=== PATIENT | female | born 2000 | race African-American/Black ===

== ENCOUNTER 2022-02-01 01:00 | Inpatient (IN) ==
[2022-02-01] MEDS ORDERED: ONDANSETRON 4 MG/2 ML VIAL IV PRN (01:07)
[2022-02-01] MEDS ORDERED: CARBOPROST TROMETHAMINE 250 MCG/ML AMP IM PRN (01:07)
[2022-02-01] MEDS ORDERED: LACTATED RINGERS 500 ML IV PRN (01:07)
[2022-02-01] MEDS ORDERED: TRANEXAMIC ACID 1,000 MG in SODIUM CHLORIDE 0.9% 100 ML IV PRN (01:07)
[2022-02-01] MEDS ORDERED: ACETAMINOPHEN 325 MG TABLET PO PRN (01:07)
[2022-02-01] MEDS ORDERED: OXYTOCIN/LR 20 UNIT/1,000 ML BAG IV ONE ×2 (01:07→15:28)
[2022-02-01] MEDS ORDERED: miSOPROStoL 200 MCG TABLET RECTAL PRN (01:07)
[2022-02-01] MEDS ORDERED: METHYLERGONOVINE 0.2 MG/1 ML AMP IM PRN (01:07)
[2022-02-01] MEDS ORDERED: BUTORPHANOL 2 MG/ML VIAL IV PRN (01:07)
[2022-02-01] MEDS ORDERED: OXYTOCIN/LR 20 UNIT/1,000 ML BAG IV SCH (01:30)
[2022-02-01 01:42] LABS: Basophils % 0.2 % (0.0-0.8); Eosinophils # 0.1 10*3/uL (0.0-0.87); Eosinophils % 0.8 % (0.00-10.9); Hemoglobin 12.9 GM/DL (12.0-16.0); Immature Granulocytes % 1.4 %; Immature Granulocytes Absolute 0.13 #; Lymphocytes # 2.1 10*3/uL (1.4-4.0); Lymphocytes % 21.8 % (21.3-54.2); Mean Corpuscular HGB Conc 32.3 GM/DL (32-36); Mean Corpuscular Volume 93.9 FL (87-102); Mean Platelet Volume 11.2 FL (9.6-12.0); Monocytes % 10.2 % (1.7-12.7); Neutrophils % 65.6 % (38.7-73.9); Platelet Count 262 T/CUMM (130-400); Red Blood Count 4.26 MC/CUMM (3.8-5.5); Red Cell Distribution Width 13.4 % (9.3-17.3); White Blood Count 9.5 T/CUMM (4-12)
[2022-02-01] MEDS ORDERED: NIFEdipine 10 MG CAPSULE PO ONE (01:52)
[2022-02-01 01:57] LABS: Bacteria,Urine Occasional /HPF (Few); Mucus,Urine Occasional /LPF (Occasional); RBC,Urine 2 /HPF (0-4); Squamous Epithelial Cell,Urine Occasional /HPF (0-10); Transitional Epi Cells,Urine Occasional /HPF (<1)
[2022-02-01 01:58] LABS: Bilirubin,Urine Negative (Negative); Blood, Urine Negative (Negative); Glucose,Urine (UA) Negative (Negative); Ketones,Urine Negative (Negative); Nitrite,Urine Negative (Negative); Protein,Urine Negative (Negative); Urine Appearance Clear (Clear); Urine Color Yellow (Yellow); Urine Specific Gravity 1.015 (1.001-1.035); Urine Urobilinogen 0.2 eU/dL (<2.0)
[2022-02-01 02:01] LABS: PT Patient Result 10.9 SECS (10.1-12.1); Partial Thromboplastin Time 33.7 SECS (23.7-32.9)
[2022-02-01] MEDS ORDERED: MEPERIDINE 25 MG/1 ML VIAL IV PRN (02:02)
[2022-02-01 02:04] LABS: Alanine Aminotransferase 16 U/L (13-56); Albumin 2.9 G/DL (3.4-5.0); Alkaline Phosphatase 211 U/L (45-117); Aspartate Amino Transferase 20 U/L (0-37); Blood Urea Nitrogen < 1 MG/DL (7-18); Calcium 8.7 MG/DL (8.5-10.1); Carbon Dioxide 23 MMOL/L (21-32); Chloride 106 MMOL/L (98-107); Glucose 87 MG/DL (74-106); Potassium 2.8 MMOL/L (3.5-5.1); Sodium 138 MMOL/L (136-145); Total Protein 7.5 G/DL (6.4-8.2)
[2022-02-01] MEDS: LACTATED RINGERS 1,000 ML IV SCH ×2 (02:16→09:47)
[2022-02-01] MEDS ORDERED: AMPICILLIN INJ 2,000 MG in SODIUM CHLORIDE 0.9% 100 ML IV ONE (02:30)
[2022-02-01 03:06] LABS: Protein/Creatinine Ratio,Urine 0.3 RATIO
[2022-02-01] MEDS: AMPICILLIN INJ 1,000 MG in SODIUM CHLORIDE 0.9% 100 ML IV SCH ×2 (06:25→09:48)
[2022-02-01] MEDS: POTASSIUM CHLORIDE 20 MEQ TABLET PO PRN ×5 (07:04→22:16)
[2022-02-01] MEDS ORDERED: CITRIC ACID/SODIUM CITRATE 30 ML UDCUP PO ONE (08:13)
[2022-02-01] MEDS ORDERED: FAMOTIDINE 20 MG/2 ML VIAL IV ONE (08:13)
[2022-02-01] MEDS ORDERED: NALOXONE 0.4 MG/ML VIAL IV PRN (08:13)
[2022-02-01] MEDS ORDERED: ePHEDrine 50 MG/ML VIAL IV PRN (08:13)
[2022-02-01] MEDS ORDERED: fentaNYL 2 MCG/ROPIV 0.2% EPID 100 ML EPIDURAL SCH (08:30)
[2022-02-01 10:42] LABS: Amorphous Crystals,Urine Occasional /HPF (Few); Bacteria,Urine Occasional /HPF (Few); Bilirubin,Urine Negative (Negative); Blood, Urine Negative (Negative); Glucose,Urine (UA) Negative (Negative); Ketones,Urine 15 mg/dL (Negative); Nitrite,Urine Negative (Negative); Protein,Urine Negative (Negative); RBC,Urine <1 /HPF (0-4); Squamous Epithelial Cell,Urine Occasional /HPF (0-10); Urine Appearance Clear (Clear); Urine Color Yellow (Yellow)
[2022-02-01 13:11] LABS: Cord Venous Blood HCO3 21.5 MMOL/L; Cord Venous Blood PCO2 49.9 MMHG; Cord Venous Blood PO2 39.2
[2022-02-01] MEDS ORDERED: BENZOCAINE 20%/MENTHOL 0.5% SPRAY 56 GM CAN TOP PRN (15:28)
[2022-02-01] MEDS ORDERED: MEASLES/MUMPS/RUBELLA VACCINE 0.5 ML VIAL SUBCUT ONE (15:28)
[2022-02-01] MEDS ORDERED: BISACODYL 10 MG SUPP RECTAL PRN (15:28)
[2022-02-01] MEDS ORDERED: HYDROCORTISONE 2.5% RECTAL CREAM 30 GM TUBE TOP PRN (15:28)
[2022-02-01] MEDS ORDERED: RHO(D) IMMUNE GLOBULIN 300 MCG SYRINGE IM ONE (15:28)
[2022-02-01] MEDS ORDERED: WITCH HAZEL PADS 100/JAR TOP PRN (15:28)
[2022-02-01] MEDS ORDERED: LANOLIN 50% CREAM 0.3 OZ TUBE TOP PRN (15:28)
[2022-02-01] MEDS ORDERED: DIPH/TET/ACEL PERT BOOSTER VACCINE 0.5 ML VIAL IM ONE (15:28)
[2022-02-01] MEDS ORDERED: oxyCODONE/ACETAMINOPHEN 5-325 MG TABLET PO PRN (15:28)
[2022-02-01] MEDS: oxyCODONE/ACETAMINOPHEN 5-325 MG TABLET PO PRN (15:36)
[2022-02-01] MEDS: IBUPROFEN 800 MG TABLET PO PRN (15:38)
[2022-02-01] MEDS: DOCUSATE SODIUM 100 MG CAPSULE PO SCH (21:06)
[2022-02-02] MEDS: POTASSIUM CHLORIDE 20 MEQ TABLET PO PRN ×3 (00:05→13:22)
[2022-02-02] MEDS: IBUPROFEN 800 MG TABLET PO PRN ×2 (00:05→14:29)
[2022-02-02 04:57] LABS: Basophils # 0.1 10*3/uL (0.0-0.2); Basophils % 0.4 % (0.0-0.8); Eosinophils # 0.2 10*3/uL (0.0-0.87); Eosinophils % 1.2 % (0.00-10.9); Hematocrit 35.7 VOL% (35.7-47.0); Hemoglobin 11.3 GM/DL (12.0-16.0); Immature Granulocytes % 1.2 %; Immature Granulocytes Absolute 0.17 #; Lymphocytes % 14.8 % (21.3-54.2); Mean Corpuscular HGB Conc 31.7 GM/DL (32-36); Mean Corpuscular Volume 96.7 FL (87-102); Mean Platelet Volume 11.7 FL (9.6-12.0); Monocytes # 1.4 10*3/uL (0.11-0.8); Monocytes % 10.1 % (1.7-12.7); Neutrophils % 72.3 % (38.7-73.9); Platelet Count 238 T/CUMM (130-400); Red Blood Count 3.69 MC/CUMM (3.8-5.5); Red Cell Distribution Width 13.4 % (9.3-17.3); White Blood Count 13.7 T/CUMM (4-12)
[2022-02-02] MEDS: DOCUSATE SODIUM 100 MG CAPSULE PO SCH ×2 (09:04→20:45)
[2022-02-02] MEDS: POTASSIUM BICARB EFFERVESCENT 20 MEQ TAB.EFF PO PRN ×2 (17:26→18:38)
[2022-02-03] MEDS: oxyCODONE/ACETAMINOPHEN 5-325 MG TABLET PO PRN (01:36)
[2022-02-03] MEDS: DOCUSATE SODIUM 100 MG CAPSULE PO SCH ×2 (08:29→21:45)
[2022-02-04 07:20] VITALS: BP 145/79
[2022-02-04] MEDS: DOCUSATE SODIUM 100 MG CAPSULE PO SCH (08:19)
== END 2022-02-04 12:25 | disposition home or self-care (01) | DRG 560 ==
LOC: N.LD 01:00 → N.OB 15:11
PROVIDERS: ADMIT Obstetrics & Gynecology; ATTEND Obstetrics & Gynecology